=== PATIENT | male | born 1960 | race Caucasian/White ===

== ENCOUNTER 2016-09-03 09:03 | Emergency (ER) | payer MEDICARE ==
[2016-09-03 09:04] VITALS: BMI 32.1
[2016-09-03 09:30] VITALS: PULSE 78; RESP 18; TEMP 98.2
[2016-09-03] MEDS ORDERED: Naproxen 550 mg Tab PO STA (10:12)
[2016-09-03] MEDS ORDERED: Naproxen 550 mg Tab PO ONE (10:17)
--- NOTE | 2016-09-03 10:25 | C.PDOC ---
History Of Present Illness 56 y/o male pmhx HTN, diabetes presents to the ED with complains of chest pain and left shoulder pain since he slipped on ice and fell backward yesterday. Pt states chest pain is a pressure sensation bilaterally. Pt denies palpatations, SOB, nausea, vomiting, back pain, numbness, weakness or any other complaints. No head injury. - HPI Time Seen by Provider: 09/03/16 09:44 Chief Complaint (Nursing): Trauma History Per: Patient History/Exam Limitations: no limitations Onset/Duration Of Symptoms: Hrs Location Of Injury: Left: Shoulder, Anterior: Chest Severity: Mild Recent travel outside of the [place]: No Past Medical History Reviewed: Historical Data, Nursing Documentation, Vital Signs Vital Signs: Last Vital Signs Temp 98.2 F 09/03/16 09:29 Pulse 78 09/03/16 11:20 Resp 18 09/03/16 11:20 BP 161/95 H 09/03/16 11:20 Pulse Ox 97 09/03/16 11:41 - Medical History PMH: Arthritis, Diabetes, HTN Surgical History: Cholecystectomy Family History: States: No Known Family Hx - Social History Hx Tobacco Use: No Hx Alcohol Use: No Hx Substance Use: No - Immunization History Hx Tetanus Toxoid Vaccination: No Hx Influenza Vaccination: No Hx Pneumococcal Vaccination: No Review Of Systems Except As Marked, All Systems Reviewed And Found Negative. Constitutional: Negative for: Fever Cardiovascular: Positive for: Chest Pain. Negative for: Palpitations Respiratory: Negative for: Shortness of Breath Musculoskeletal: Positive for: Shoulder Pain (left). Negative for: Back Pain Neurological: Negative for: Weakness, Numbness Physical Exam - Physical Exam Appears: Non-toxic, No Acute Distress Skin: Warm, Dry, No Rash Head: Atraumatic, Normacephalic Nose: Normal Neck: Normal ROM, Supple Chest: Symmetrical, No Deformity, Tenderness (anterior chest wall, bilateral), No Ecchymosis Cardiovascular: Rhythm Regular, No Murmur Respiratory: Normal Breath Sounds, No Rales, No Rhonchi, No Wheezing Gastrointestinal/Abdominal: Soft, No Tenderness Extremity: Tenderness (left posterior shoulder tenderness, decreased ROM), Capillary Refill (<2 seconds), No Deformity, Other (no erythema) Pulses: Left Radial: Normal Neurological/Psych: Oriented x3, Normal Motor, Normal Sensation ED Course And Treatment ECG: Interpreted By Me, Viewed By Me ECG Rhythm: Sinus Rhythm Rate From EC (BPM) O2 Sat by Pulse Oximetry: 97 (on room air) Pulse Ox Interpretation: Normal - Other Rad Chest X-Ray X-Ray: Viewed By Me, Read By Radiologist Interpretation: Accession No. : [id number]. Patient Name / ID : CHI MIRELES Y / [id number]. Exam Date : 09/03/2016 10:07:46 ( Approved ). Study Comment : Sex / Age : M / 56Y. Creator : ARLEEN COLLIER MD. Dictator : ARLEEN COLLIER MD. Tight Rope Walker : Dry Charge Process Attendant : ARLEEN COLLIER MD. Approver2 : Report Date : 11:38:40. My Comment : . HISTORY: Chest pain. COMPARISON: 11/04. TECHNIQUE: Chest PA and lateral. FINDINGS: LUNGS: There is mild pulmonary hyperinflation and chronic changes in both lungs. There is bibasilar scarring. There is no focal consolidation. PLEURA: No significant pleural effusion identified. No pneumothorax apparent. CARDIOVASCULAR: Normal. OSSEOUS STRUCTURES: No significant abnormalities. VISUALIZED UPPER ABDOMEN: Normal. OTHER FINDINGS: None. IMPRESSION: No active pulmonary disease. COPD. X-Ray, Left Shoulder X-Ray: Viewed By Me, Read By Radiologist Interpretation: Accession No. : [id number]. Patient Name / ID : CHI MIRELES Y / [id number]. Exam Date : 09/03/2016 10:12:26 ( Approved ). Study Comment : Sex / Age : M / 4Y. Creator : ARLEEN COLLIER MD. Dictator : ARLEEN COLLIER MD. Tight Rope Walker : Dry Charge Process Attendant : ARLEEN COLLIER MD. Approver2 : Report Date : 14:06:04. My Comment : . PROCEDURE: Radiographs of the Left Shoulder. HISTORY: left shoulder pain after fall. COMPARISON: No prior. FINDINGS: BONES: Bone alignment and mineralization are normal. No acute fracture. JOINTS: Normal. Glenohumeral and acromioclavicular joints preserved. No osteoarthritis. SOFT TISSUES: Normal. OTHER FINDINGS: None. IMPRESSION: No acute fracture or dislocation. Progress Note: Plan: XR shoulder, CXR, naprosyn, flexeril. XR shoulder negative for fracture or dislocation Disposition Counseled Patient/Family Regarding: Studies Performed, Diagnosis, Need For Followup, Rx Given - Disposition Referrals: [facility] [Outside] Pan Sanchez III, MD [Staff Provider] - Disposition: HOME/ ROUTINE Disposition Time: 10:50 Condition: STABLE Additional Instructions: FOLLOW UP WITH YOUR DOCTOR IN 1-2 DAYS SEE ORTHOPEDIC SURGEON WITHIN 1 WEEK IF SYMPTOMS PERSIST USE MEDICATIONS NEEDED RETURN TO ER IF SYMPTOMS WORSEN Prescriptions: Cyclobenzaprine [Cyclobenzaprine HCl] 10 mg PO BID PRN #15 tab PRN Reason: Muscle Spasm Naproxen [Naprosyn Tab] 375 mg PO BID PRN #20 tab PRN Reason: pain Instructions: Chest Wall Pain (ED), Shoulder Sprain (ED), Shoulder Pain (ED) Print Language: POLISH - POA Present On Arrival: Falls Or Trauma - Clinical Impression Clinical Impression: Chest wall pain, Shoulder sprain, Contusion - Scribe Statement The provider has reviewed the documentation as recorded by the Isabel Vital Provider Attestation: All medical record entries made by the Isabel were at my direction and personally dictated by me. I have reviewed the chart and agree that the record accurately reflects my personal performance of the history, physical exam, medical decision making, and the department course for this patient. I have also personally directed, reviewed, and agree with the discharge instructions and disposition.
[2016-09-03 11:21] VITALS: BP 161/95; O2SAT 97
--- NOTE | 2016-09-03 11:40 | RAD ---
HISTORY: Chest pain COMPARISON: 11/04/2014 TECHNIQUE: Chest PA and lateral FINDINGS: LUNGS: There is mild pulmonary hyperinflation and chronic changes in both lungs. There is bibasilar scarring. There is no focal consolidation. PLEURA: No significant pleural effusion identified. No pneumothorax apparent. CARDIOVASCULAR: Normal. OSSEOUS STRUCTURES: No significant abnormalities. VISUALIZED UPPER ABDOMEN: Normal. OTHER FINDINGS: None. IMPRESSION: No active pulmonary disease. COPD.
--- NOTE | 2016-09-03 14:07 | RAD ---
PROCEDURE: Radiographs of the Left Shoulder HISTORY: left shoulder pain after fall COMPARISON: No prior. FINDINGS: BONES: Bone alignment and mineralization are normal. No acute fracture. JOINTS: Normal. Glenohumeral and acromioclavicular joints preserved. No osteoarthritis. SOFT TISSUES: Normal. OTHER FINDINGS: None. IMPRESSION: No acute fracture or dislocation.
--- NOTE | 2016-09-03 20:25 | CON ---
DATE: 09/03/2016 The patient is a 56-year-old who came for surgery today, but apparently he fell done on his chest on the ice and he was in severe pain of the flank/chest area. We cancelled his surgery. The patient was examined in the Emergency Room after doing chest x-ray and evaluation, which did not show any evidence of any fractures. Physical exam revealed abdomen soft. No flank tenderness. No kidney palpable. No suprapubic fullne ss or tenderness. Chest tenderness. IMPRESSION: Condition post-trauma to the flank and chest. The patient will be discharged and follow up with me. Enrrique Hernandez MD cc: 43 TT: 09/03/2016 20:25:21 Confirmation # [id number] Dictation # [id number]
== END 2016-09-03 11:20 | disposition home or self-care (01) ==
LOC: C.ER 09:03
DX: S43.402A Unspecified sprain of left shoulder joint, initial encounter (principal); R07.89 Other chest pain; W00.0XXA Fall on same level due to ice and snow, initial encounter; Y92.414 Local residential or business street as the place of occurrence of the external cause